=== PATIENT | male | born 1965 | race Caucasian/White ===

== ENCOUNTER 2021-08-07 10:58 | Emergency (ER) | payer OTHER ==
[~2021-08-07] VITALS: Ht 167.6 cm; Wt 95.5 kg
[2021-08-07] MEDS ORDERED: ALTEPLASE 2 MG VIAL IVCATH ONE (13:15)
[2021-08-07 15:46] VITALS: BP 105/60
== END 2021-08-07 17:42 | disposition home or self-care (01) ==
LOC: EMS 11:09
DX: U07.1 COVID-19 (principal); T82.868A Thrombosis due to vascular prosthetic devices, implants and grafts, initial encounter; E11.9 Type 2 diabetes mellitus without complications; F12.90 Cannabis use, unspecified, uncomplicated; F15.90 Other stimulant use, unspecified, uncomplicated
CPT/HCPCS: 71045; 99283; J2997